=== PATIENT | male | born 1935 | race Caucasian/White ===

== ENCOUNTER 2016-08-06 10:57 | Emergency (ER) | payer OTHER ==
--- NOTE | 2016-08-06 11:24 | EDM.PDOC ---
ED HPI GENERAL MEDICAL PROBLEM - General Chief Complaint: Genitourinary Problem Stated Complaint: blood in urine Time Seen by Provider: 08/06/16 11:05 Source of Information: Reports: Patient, Family (), Old records ([facility] chart/EMR) History Limitations: Reports: No limitations - History of Present Illness INITIAL COMMENTS - FREE TEXT/NARRATIVE: The patient was brought to the emergency room via private automobile by his for evaluation of progressive gross hematuria with symptoms starting at about 2 p.m. yesterday afternoon. He denies any colic, dysuria, etc., however note current urostomy bag secondary to previous bladder cancer. He denies any pain, although the patient and his are somewhat poor historians. No recent history of abdominal pain, heartburn, nausea, diarrhea, melena, gross hematochezia, or any food intolerance, including fatty foods, etc.. The patient denies any chest pain/pressure, heart flutter, dizziness, orthostasis, orthopnea , diaphoresis, paresthesias, recent decreased exercise tolerance, or any other anginal-type symptoms. The patient also denies any recent fever, cough, wheezing , dyspnea, etc.. 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 Denies: Allergic rhinitis, Glaucoma, Hard of hearing, Macular degeneration Other HEENT History: glasses Cardiovascular History: Reports: Aneurysm, Heart Failure, High cholesterol, Syncope, Other (see below). Denies: Afib, Arrhythmia, Blood clots/VTE/DVT, CAD , Heart murmur, Hypertension, [place], Pacemaker Other Cardiovascular History: History of CHF and secondary syncope on 03/12/16 with possible concomitant CVA at that time, AAA with repair as below Respiratory History: Reports: Intubation, previous, Other (see below). Denies: Asthma, COPD, PE, Pneumothorax, Sleep apnea Other Respiratory History: Large right lower lobe pulmonary mass diagnosed on with patient requesting no further workup Gastrointestinal History: Reports: Chronic constipation, Other (see below). Denies: Celiac disease, Cholelithiasis, Colon polyp, Diverticulosis, Fecal incontinence, Gastritis, GERD, Hepatitis, Hiatal hernia, Inflammatory bowel disease, Irritable bowel syndrome, Jaundice, Pancreatitis Other Gastrointestinal History: Large ventral abdominal hernia at site of his urostomy Genitourinary History: Reports: BPH, Urostomy, Other (see below). Denies: Chronic renal insuffiency, Dialysis, Renal calculus, STD, UTI, recurrent Other Genitourinary History: Bladder cancer as below Musculoskeletal History: Reports: Arthritis, Back pain, chronic, Fracture, Neck pain, chronic, Osteoarthritis, Other (see below). Denies: Amputation, Gout, RA , SLE Other Musculoskeletal History: Right foot and right femoral fracture at about age 21 in service with surgery as below Neurological History: Reports: CVA, Seizure, Speech problems, Other (see below) . 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 Denies: Abuse, victim of, ADD, ADHD, Alzheimers disease, Dementia, Emotional problems, Psych Hospitalization(s), PTSD, Suicide attempt, Suicidal ideation Endocrine/Metabolic History: Reports: None. Denies: Diabetes, type I, Diabetes , type II, Hypothyroidism, IDDM Hematologic History: Reports: None. Denies: Anemia, Blood transfusion(s), Iron deficiency Immunologic History: Reports: None. Denies: AIDS, HIV, SLE Oncologic (Cancer) History: Reports: Bladder, Metastatic, Other (see below). Denies: Basal cell carcinoma, Colon, Hodgkin's Lymphoma, Leukemia, Malignant melanoma, Non-Hodgkin's Lymphoma, Squamous cell carcinoma Other Oncologic History: History of bladder cancer with cystectomy and urostomy placement. Possible metastases to the lungs as above with only partial chemotherapy secondary to intolerance Dermatologic History: Reports: None. Denies: Eczema, Psoriasis - Infectious Disease History Infectious Disease History: Reports: Chicken pox. Denies: C-difficile, Measles , MRSA, Mumps, Pertussis (whooping cough), Rheumatic Fever, Rubella, Scarlet fever, Shingles, TB, VRE - Past Surgical History Head Surgeries/Procedures: Reports: None HEENT Surgical History: Reports: Oral surgery, Other (see below). Denies: Adenoidectomy, Cataract surgery, Eye surgery, Laser surgery, LASIK, Myringotomy w tube(s), Naso-sinus surgery, Tonsillectomy Other HEENT Surgeries/Procedures: Multiple dental extractions Cardiovascular Surgical History: Reports: AAA repair, Other (see below). Denies : Pacer, Varicose, Vascular surgery Other Cardiovascular Surgeries/Procedures: Stent x3 in abdominal aortic aneurysm on 03/14/12 Respiratory Surgical History: Reports: None. Denies: Lung Biopsies, Thoracentesis GI Surgical History: Reports: Hernia, inguinal, Other (see below). Denies: Appendectomy, Cholecystectomy, Colonoscopy, EGD Other GI Surgeries/Procedures: Left inguinal hernia repair in about Male Surgical History: Reports: Circumcision, Cystectomy, Other (see below). Denies: TURP-Transurethral resection of prostate, Vasectomy Other Male Surgeries/Procedures: Cystectomy and urostomy placed in 2011 secondary to bladder cancer Endocrine Surgical History: Reports: None. Denies: Thyroid biopsy Neurological Surgical History: Reports: None. Denies: C-Spine, Discectomy, Laminectomy, Lumbar spine, Spinal fusion, Vertebroplasty Musculoskeletal Surgical History: Reports: ORIF, Other (see below). Denies: Arthroscopic knee, Arthroscopic procedure, Carpal tunnel, Ganglion cyst, Joint replacement, Shoulder surgery Other Musculoskeletal Surgeries/Procedures:: Mick placement in his right finger secondary to fracture at age 21 Oncologic Surgical History: Reports: None Dermatological Surgical History: Reports: None - Past Imaging History Past Imaging History: Reports: CAT scan (CT of the head on 03/12/16 with apparent additional evaluations at the [facility] in [place] after hospital transfer however specifics unknown. Previous CT scan of the head in 2013 at time of his CVA,), MRI (Brain on 06/09/12 with possible additional evaluations in February 2016), PET (Of the chest on ) Social & Family History - Family History HEENT: Reports: Macular degeneration, Other (see below). Denies: Glaucoma, Retinal detachment Other HEENT Family History: Sister with macular degeneration Cardiac: Reports: CAD, Heart failure, Hypertension, [place], Other (see below). Denies: Afib, Aneurysm, Arrhythmia, Blood clots/VTE/DVT, Bypass, High cholesterol, Pacemaker, Stent, Syncope Other Cardiac Family History: Brothers x2 with fatal [place] in their 50s with another 2 brothers with fatal MIs in their 70s Respiratory: Reports: None. Denies: Asthma, COPD, PE, Pneumothorax, Sleep apnea GI: Reports: None. Denies: Celiac disease, Cholelithiasis, Colon polyps, GERD, GI bleed, Inflammatory bowel disease, Irritable bowel syndrome, PUD : Reports: None. Denies: Renal calculus, Renal disease/insufficiency OBGYN: Reports: None. Denies: Endometriosis, Recurrent spontaneous Musculoskeletal: Reports: None. Denies: Gout, RA, SLE Neurological: Reports: None. Denies: Alzheimers disease, Cerebral aneurysms, CVA, Dementia, Parkinson's, Seizure, TIA Psychiatric: Reports: None. Denies: Abuse, victim of, ADD, ADHD, Anxiety, Depression, Psych hospitalization(s), PTSD, Suicide attempt Endocrine/Metabolic: Reports: None. Denies: Diabetes, type I, Diabetes, type II , Hypothyroidism, IDDM Hematologic: Reports: None. Denies: Anemia, SLE Immunologic: Reports: None. Denies: AIDS, HIV, SLE Dermatologic: Reports: None. Denies: Eczema, Psoriasis Oncologic: Reports: Breast, Leukemia, Other (see below). Denies: Bladder, Cervix, Hodgkin's lymphoma, Metastatic, Non-Hodgkin's lymphoma, Prostate, Skin Other Oncologic Family History: Sister with leukemia, sister with breast cancer in her 70s - Tobacco Use Smoking Status *Q: Former Smoker Years of Tobacco use: 66 Packs/Tins Daily: 1 Used Tobacco, but Quit: Yes Month Tobacco Last Used: Next use of 1 packs per day between ages 13 and 71 Smoking Cessation Information Provided To Patient: No Second Hand Smoke Exposure: No Second Hand Smoke Education Provided: No - Caffeine Use Caffeine Use: Reports: Coffee, Soda. Denies: Energy drinks, Tea Caffeine Use Comment: One cup of coffee per day, very occasional soda - Alcohol Use Alcohol Use History: Yes Days Per Week of Alcohol Use: 0 (No previous DWIs, problems with alcohol abuse, etc.) Number of Drinks Per Day: 1 (Occasional beer once per year) Total Drinks Per Week: 0 Alcohol Use in Last Twelve Months: Yes Alcohol Use Frequency: Socially - Recreational Drug Use Recreational Drug Use: No Drug Use in Last 12 Months: No Recreational Drug Type: Denies: Amphetamines (Speed), Cocaine, Heroin, Inhalants (Glues, Solvents, Aerosols), LSD (Acid), Marijuana/Hashish, Methamphetamine, Morphine - Living Situation & Occupation Living situation: Reports: ( in [place], no children) 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 ED EXAM, GENERAL - Physical Exam Exam: See Below Exam Limited By: No limitations General Appearance: alert, WD/WN, no apparent distress Nose: normal inspection, normal mucosa, no blood Head: atraumatic, normocephalic. No: facial swelling, facial tenderness, sinus tenderness Neck: normal inspection, supple, non-tender, full range of motion. No: lymphadenopathy (L), lymphadenopathy (R), thyromegaly Respiratory/Chest: no respiratory distress, lungs clear, normal breath sounds, no accessory muscle use, chest non-tender. No: pleural rub, retractions Cardiovascular: normal peripheral pulses, regular rate, rhythm, no edema, no gallop, no JVD, no murmur, no rub. No: gallop/S3, gallop/S4, friction rub Peripheral Pulses: 2+: radial (L), radial (R) GI/Abdominal: normal bowel sounds, soft, non tender, no organomegaly, no distention, no abnormal bruit, no mass, hernia (As below), other (Urostomy bag with gross hematuria in the right lower quadrant, large ventral wall abdominal hernia at site of his urostomy). No: guarding, rebound (Male) Exam: Deferred Rectal (Males) Exam: Deferred Back Exam: normal inspection, full range of motion. No: CVA tenderness (L), CVA tenderness (R), muscle spasm Extremities: normal inspection, normal range of motion, non-tender, no pedal edema, normal capillary refill. No: Keri's Sign Neurological: alert, oriented, CN II-XII intact, normal cognition, normal gait, no motor/sensory deficits Psychiatric: normal affect, normal mood Skin Exam: Warm, Dry, Intact, Normal color, No rash. No: Diaphoretic, Wound/ incision Lymphatic: no adenopathy Course - Vital Signs Last Recorded V/S: Last Vital Signs Temp 36.8 C 08/06/16 16:36 Pulse 109 H 08/06/16 16:36 Resp 20 08/06/16 16:36 BP 124/96 H 08/06/16 16:36 Pulse Ox Vital Signs - 24 hr 08/06/16 16:36 Temperature [ 36.8 C Temporal] Pulse, 109 H Peripheral [ Right Pulse Oximetry] Respiratory 20 Rate Blood Pressure 124/96 H [Right Upper Arm] - Orders/Labs/Meds Orders: Active Orders 24 hr Category Date Time Status CULTURE URINE [RM] Routine Lab 08/06/16 11:39 Received Labs: Laboratory Tests 08/06/16 08/06/16 08/06/16 Range/Units 11:39 11:45 11:45 WBC 8.3 (4.0-10.2) K/uL RBC 4.43 (4.33-5.41) M/uL Hgb 12.6 L (13.1-16.8) g/dL Hct 39.4 (39.0-49.0) % MCV 88.9 (84.0-98.0) fL MCH 28.4 (28.2-33.3) pg MCHC 32.0 (31.7-36.0) g/dL RDW 13.6 (11.2-14.1) % Plt Count 188 (150-350) K/uL Neut % (Auto) 80.9 H (45.0-80.0) % Lymph % (Auto) 12.3 (10.0-50.0) % [place] % (Auto) 5.4 (2.0-14.0) % Eos % (Auto) 0.8 (0.0-5.0) % Baso % (Auto) 0.6 (0.0-2.0) % Neut # (Auto) 6.71 (1.40-7.00) K/uL Lymph # (Auto) 1.02 (0.50-3.50) K/uL [place] # (Auto) 0.45 (0.00-1.00) K/uL Eos # (Auto) 0.07 (0.00-0.50) K/uL Baso # (Auto) 0.05 (0.00-0.20) K/uL PT (9.8-11.7) SEC INR APTT (23.5-30.0) SEC Sodium 139 (136-145) mmol/L Potassium 3.9 (3.5-5.1) mmol/L Chloride 103 (98-107) mmol/L Carbon Dioxide 25.8 (21.0-32.0) mmol/L BUN 17 (7-18) mg/dL Creatinine 0.92 (0.51-1.17) mg/dL Est Cr Clr Drug Dosing 59.58 mL/min Estimated GFR (MDRD) > 60 mL/min Glucose 116 H (74-106) mg/dL Calcium 9.2 (8.5-10.1) mg/dL Magnesium 2.1 (1.8-2.4) mg/dL Total Bilirubin 0.7 (0.2-1.0) mg/dL AST 13 L (15-37) U/L ALT 15 (12-78) U/L Alkaline Phosphatase 110 (46-116) IU/L Total Protein 7.7 (6.4-8.2) g/dL Albumin 3.7 (3.4-5.0) g/dL Specimen Type Urinuro Urine Color Red Urine Appearance Slightly cloudy Urine pH 7.0 (5.0-9.0) Ur Specific [place] 1.010 (1.005-1.030) Urine Protein >=300 H (NEGATIVE) mg/dL Urine Glucose (UA) Negative (NEGATIVE) mg/dL Urine Ketones Trace H (NEGATIVE) mg/dL Urine Occult Blood Large H (NEGATIVE) Urine Nitrite Positive H (NEGATIVE) Urine Bilirubin Small H (NEGATIVE) Urine Urobilinogen 1.0 (0.2-1.0) E.U./dL Ur Leukocyte Esterase Trace H (NEGATIVE) Urine RBC Packed /HPF Urine WBC 10-20 H /HPF Ur Epithelial Cells Few /LPF Urine Bacteria Few (NONE TO FEW) /HPF 08/06/16 Range/Units 11:45 WBC (4.0-10.2) K/uL RBC (4.33-5.41) M/uL Hgb (13.1-16.8) g/dL Hct (39.0-49.0) % MCV (84.0-98.0) fL MCH (28.2-33.3) pg MCHC (31.7-36.0) g/dL RDW (11.2-14.1) % Plt Count (150-350) K/uL Neut % (Auto) (45.0-80.0) % Lymph % (Auto) (10.0-50.0) % [place] % (Auto) (2.0-14.0) % Eos % (Auto) (0.0-5.0) % Baso % (Auto) (0.0-2.0) % Neut # (Auto) (1.40-7.00) K/uL Lymph # (Auto) (0.50-3.50) K/uL [place] # (Auto) (0.00-1.00) K/uL Eos # (Auto) (0.00-0.50) K/uL Baso # (Auto) (0.00-0.20) K/uL PT 10.3 (9.8-11.7) SEC INR 1.0 APTT 28.9 (23.5-30.0) SEC Sodium (136-145) mmol/L Potassium (3.5-5.1) mmol/L Chloride (98-107) mmol/L Carbon Dioxide (21.0-32.0) mmol/L BUN (7-18) mg/dL Creatinine (0.51-1.17) mg/dL Est Cr Clr Drug Dosing mL/min Estimated GFR (MDRD) mL/min Glucose (74-106) mg/dL Calcium (8.5-10.1) mg/dL Magnesium (1.8-2.4) mg/dL Total Bilirubin (0.2-1.0) mg/dL AST (15-37) U/L ALT (12-78) U/L Alkaline Phosphatase (46-116) IU/L Total Protein (6.4-8.2) g/dL Albumin (3.4-5.0) g/dL Specimen Type Urine Color Urine Appearance Urine pH (5.0-9.0) Ur Specific [place] (1.005-1.030) Urine Protein (NEGATIVE) mg/dL Urine Glucose (UA) (NEGATIVE) mg/dL Urine Ketones (NEGATIVE) mg/dL Urine Occult Blood (NEGATIVE) Urine Nitrite (NEGATIVE) Urine Bilirubin (NEGATIVE) Urine Urobilinogen (0.2-1.0) E.U./dL Ur Leukocyte Esterase (NEGATIVE) Urine RBC /HPF Urine WBC /HPF Ur Epithelial Cells /LPF Urine Bacteria (NONE TO FEW) /HPF Urine specimen and also set up for culture and sensitivity and submitted for urine cytology Meds: None - Radiology Interpretation Free Text/Narrative:: None Departure - Departure Time of Disposition: 12:35 Disposition: Home, Self-Care 01 Condition: good Clinical Impression: UTI, Urinary tract infectious disease, Mixed anxiety depressive disorder Bladder cancer Qualifiers: Bladder location: unspecified site Qualified Code(s): C67.9 - Malignant neoplasm of bladder, unspecified Osteoarthritis Qualifiers: Osteoarthritis location: multiple joints Osteoarthritis type: primary Qualified Code(s): M15.0 - Primary generalized (osteo)arthritis CVA (cerebral vascular accident) Qualifiers: CVA mechanism: occlusion Precerebral and cerebral artery: middle cerebral artery Laterality of affected vessel: left Qualified Code(s): I63.512 - Cerebral infarction due to unspecified occlusion or stenosis of left middle cerebral artery COPD (chronic obstructive pulmonary disease) Qualifiers: COPD type: emphysema Emphysema type: panlobular Qualified Code(s): J43.1 - Panlobular emphysema Abdominal aortic aneurysm Qualifiers: Presence of rupture: without rupture Qualified Code(s): I71.4 - Abdominal aortic aneurysm, without rupture Prescriptions: Sulfamethoxazole/Trimethoprim [Bactrim Ds Tablet] 1 each PO BIDMEALS #20 tablet Instructions: Urinary Tract Infection, Adult, [id number] Referrals: PCP,Unknown [Primary Care Provider] - Forms: ED Department Discharge Additional Instructions: 1. Followup with your new primary provider, LISA Myers at [facility], on 08/10/16 for reevaluation and recommended repeat CBC and basic metabolic panel. Discuss urine cytology results, which was collected during this emergency room visit, at that time 2. Further urology and/or oncology referral depending on the above test results and your clinical course 3. Encourage oral fluids, including daily cranberry use, etc.as directed. - Problem List & Annotations (1) UTI, Urinary tract infectious disease SNOMED Code(s): 37163999 Code(s): N39.0 - URINARY TRACT INFECTION, SITE NOT SPECIFIED Status: Acute Priority: High Onset Date: 08/06/16 Annotation/Comment:: Initiate Bactrim DS therapy. Close followup by regular provider (2) Bladder cancer SNOMED Code(s): 803016619 Code(s): C67.9 - MALIGNANT NEOPLASM OF BLADDER, UNSPECIFIED Status: Chronic Priority: Medium Annotation/Comment:: Urine specimen sent for urine cytology, which will be discussed with his regular provider. Patient does not have a local provider and now plans to establish LISA Myers at [facility] as his local physician. Note comfort care in the past with consideration of urology and/or oncology consultations depending on his clinical course. Note previous incomplete therapy for his bladder cancer secondary to intolerance with chemotherapy and probable pulmonary metastases Qualifiers: Bladder location: unspecified site Qualified Code(s): C67.9 - Malignant neoplasm of bladder, unspecified (3) Abdominal aortic aneurysm SNOMED Code(s): 616301428 Code(s): I71.4 - ABDOMINAL AORTIC ANEURYSM, WITHOUT RUPTURE Status: Chronic Priority: Medium Annotation/Comment:: Previous therapy as above. No current symptoms Qualifiers: Presence of rupture: without rupture Qualified Code(s): I71.4 - Abdominal aortic aneurysm, without rupture (4) CVA (cerebral vascular accident) SNOMED Code(s): 688899306 Code(s): I63.9 - CEREBRAL INFARCTION, UNSPECIFIED Status: Acute Priority : High Annotation/Comment:: No headaches or change in his neurological status. Previous left CVA with chronic dysarthria and spastic left hemiparesis. His blood pressure somewhat elevated today, however continue to observe by his your regular provider Qualifiers: CVA mechanism: occlusion Precerebral and cerebral artery: middle cerebral artery Laterality of affected vessel: left Qualified Code(s): I63.512 - Cerebral infarction due to unspecified occlusion or stenosis of left middle cerebral artery (5) Mixed anxiety depressive disorder SNOMED Code(s): 782651570 Code(s): F41.8 - OTHER SPECIFIED ANXIETY DISORDERS Status: Chronic Priority: Medium Annotation/Comment:: Stable by his history (6) Osteoarthritis SNOMED Code(s): 737857627 Code(s): M19.90 - UNSPECIFIED OSTEOARTHRITIS, UNSPECIFIED SITE Status: Chronic Priority: Medium Annotation/Comment:: Stable by history Qualifiers: Osteoarthritis location: multiple joints Osteoarthritis type: primary Qualified Code(s): M15.0 - Primary generalized (osteo)arthritis (7) COPD (chronic obstructive pulmonary disease) SNOMED Code(s): 16494727 Code(s): J44.9 - CHRONIC OBSTRUCTIVE PULMONARY DISEASE, UNSPECIFIED Status : Chronic Priority: Medium Onset Date: ~03/12/16 Annotation/Comment:: COPD by chest x-ray with no current therapy and no history of fever or bronchitic-type symptoms. Qualifiers: COPD type: emphysema Emphysema type: panlobular Qualified Code(s): J43.1 - Panlobular emphysema (8) CHF (congestive heart failure) SNOMED Code(s): 18387940 Code(s): I50.9 - HEART FAILURE, UNSPECIFIED Status: Acute Priority: High Onset Date: 03/12/16 Annotation/Comment:: History of mild CHF and previous syncopal episode on 03/12/16 with no recent chest pain or anginal-type symptoms Qualifiers: Congestive heart failure type: unspecified congestive heart failure type Congestive heart failure chronicity: acute Qualified Code(s): I50.9 - Heart failure, unspecified - Problem List Review Problem List Initiated/Reviewed/Updated: Yes - My Orders Last 24 Hours: My Active Orders 08/06/16 11:39 CULTURE URINE [RM] Routine - Assessment/Plan Last 24 Hours: My Active Orders 08/06/16 11:39 CULTURE URINE [RM] Routine Assessment:: As above Plan: As above. Extensive precautions were given to the patient and his , who are in agreement with the treatment plan.
[2016-08-06 12:19] LABS: CHLORIDE,CL 103 mmol/L (98-107); SODIUM,NA 139 mmol/L (136-145)
[2016-08-06 16:37] VITALS: BP 124/96
== END 2016-08-06 12:35 | disposition home or self-care (01) ==
LOC: LL.ED 10:57
DX: N39.0 Urinary tract infection, site not specified (principal); C67.9 Malignant neoplasm of bladder, unspecified; F41.3 Other mixed anxiety disorders; M15.0 Primary generalized (osteo)arthritis; I63.512 Cerebral infarction due to unspecified occlusion or stenosis of left middle cerebral artery; J43.1 Panlobular emphysema; I71.4 Abdominal aortic aneurysm, without rupture; Z79.82 Long term (current) use of aspirin; Z79.899 Other long term (current) drug therapy; H54.7 Unspecified visual loss; I50.9 Heart failure, unspecified; E78.00 Pure hypercholesterolemia, unspecified; Z87.891 Personal history of nicotine dependence
CPT/HCPCS: 36415; 80053; 81001; 83735; 85025; 85610; 85730; 87086; 87088; 87186; 88112; 99283